=== PATIENT | female | born 1945 | race Asian ===

== ENCOUNTER → 2017-05-23 | Outpatient (CLI) | payer OTHER ==
[~2017-05-23] MED LIST: ALAVERT10 MG PO; ARIMIDEX1 MG PO; ASCORBIC ACID500 MG; ASPIRIN PO; CALCIUM + D 6001 TA1 PO; CLARITIN10 M2 PO; CLARITIN10 MG; ESTROGEN PO; FISH OIL 1,2001 CAP PO; FISH OIL300 MG PO; GLIPIZIDE10 MG PO; GLUCOSAMINE CHOND PO; INVOKANA300 MG PO; LORTAB 7.5-5001 TAB; METFORMIN PO; MULTI-VITAMIN1 TAB PO; OSTEO BI-FLEX1 EAC1 PO; OYSTER CALCIUM500 MG; SENNA-LAX8.6 M1 PO; TUMS500 MG PO; TYLENOL325 M1 PO; VITAMIN C500 MG PO; [UNRECOGNIZED DRUG - OTHER]
--- NOTE | ~2017-05-23 | MY29 ---
[facility] A Service of [facility] RADIOLOGY TEXT RESULTS PATIENT: EVA HOLLINS CHA LOCATION: [facility] : 45 UNIT #: [id number] AGE: [address]: Rossi Robins MD SEX: F ORDER DR: [id number] [facility]. [place], [place] [address] [id number] O MR#: [id number] Acc #: [id number] NAME: EVA HOLLINS : 1945 SEX: F STUDY DATE/TIME: 05/23/2017 10:31 UNIT: [facility] ROOM: STUDY DESCRIPTION: MY FEMI SCREENING W/ CAD BILAT Attending Physician: Rossi Robins M.D. Referring Physician: Rossi Robins M.D. Ordering Physician: Rossi Robins M.D. Primary Care Physician: Rossi Robins M.D. MEDICAL IMAGING REPORT This report is preliminary unless electronic signature is present EXAM Bilateral digital screening mammogram with CAD 05/23/2017 HISTORY Personal history of left breast cancer with lumpectomy in 2006. History of right breast biopsy years ago. Family history of breast cancer (relative not designated). No current complaints. COMPARISON Bilateral screening mammogram 01/08/2016. Mild diagnostic mammogram 07/25/2012. FINDINGS CC, MLO and right cleavage views were obtained. Study was performing utilizing digital technique and reviewed with a FDA-approved CAD device. Post-lumpectomy changes in the right breast with skin retraction and architectural distortion, similar in appearance to the 01/08/2016 examination. Benign calcifications are seen within the lumpectomy bed. Surgical clips are also seen within right axilla, unchanged. Scattered fibroglandular densities are present bilaterally. No new or suspicious nodules identified. Fibronodular densities in the posterior-superior left breast, stable. IMPRESSION 1. BIRADS 2. Benign findings. Post-lumpectomy changes in the right breast. Routine bilateral screening mammogram recommend in 1 year. BIRADS: 2 Benign Finding. [facility] A Service of [facility] RADIOLOGY TEXT RESULTS PATIENT: EVA HOLLINS CHA LOCATION: [facility] : 45 UNIT #: [id number] AGE: [address]: Rossi Robins MD SEX: F ORDER DR: Patients over the age of 40 are entered into a reminder system with target due date for the next mammogram. A result letter will also be sent to the patient. Dictated by... Radha Zuleta M.D. THIS IS AN ELECTRONICALLY VERIFIED REPORT Radha Zuleta M.D. at 05/26/2017 8:34 AM ANTONI/sumi TD: 05/23/2017 21:23 JOB #: [id number] MEDICAL IMAGING REPORT Page 1 of 1 COPY
== END | disposition home or self-care (01) ==
LOC: CWCC 10:15
DX: Z12.31 Encounter for screening mammogram for malignant neoplasm of breast (principal); Z85.3 Personal history of malignant neoplasm of breast; Z98.890 Other specified postprocedural states
CPT/HCPCS: G0202